=== PATIENT | male | born 1955 | race Caucasian/White ===

== ENCOUNTER 2025-01-06 11:57 | Emergency (ER) | payer BC, MEDICARE ==
[~2025-01-06] VITALS: Ht 182.9 cm; Wt 87.7 kg
[2025-01-06] MEDS ORDERED: CARB25TA18 PO (12:06)
[2025-01-06] MEDS ORDERED: LOSA100T46 PO (12:06)
[2025-01-06 17:11] VITALS: TEMP 97.8
[2025-01-06 20:15] VITALS: BP 146/77; O2SAT 95
== END 2025-01-06 20:48 | disposition home or self-care (01) ==
LOC: M ED 11:57
DX: S70.02XA Contusion of left hip, initial encounter (principal); S01.01XA Laceration without foreign body of scalp, initial encounter; Y92.019 Unspecified place in single-family (private) house as the place of occurrence of the external cause; Y93.9 Activity, unspecified; Y99.9 Unspecified external cause status; W01.10XA Fall on same level from slipping, tripping and stumbling with subsequent striking against unspecified object, initial encounter; G20.A1 Parkinson's disease without dyskinesia, without mention of fluctuations; F10.10 Alcohol abuse, uncomplicated; Z79.899 Other long term (current) drug therapy